=== PATIENT | female | born 1950 | race Caucasian/White ===

== ENCOUNTER → 2023-07-19 | Outpatient (CLI) | payer MEDICARE ==
[~2023-07-19] MED LIST: AMLO-605 PO; ASPI81TA26 PO; CRES10TA PO; FENO145T7 PO; GABA-284 PO; KLOR20PO12 PO; METO1TAB33 PO; TYLE325T5 PO; ZOLO100T PO
== END ==
LOC: M RAD 10:30
PROVIDERS: ATTEND Surgery Vascular Surgery
DX: I65.23 Occlusion and stenosis of bilateral carotid arteries (principal)

== ENCOUNTER → 2024-07-20 | Outpatient (CLI) | payer MEDICARE | LOC: M WHC 13:23 | PROVIDERS: ATTEND Physician Assistant | DX: I65.23 Occlusion and stenosis of bilateral carotid arteries (principal) ==